=== PATIENT | male | born 1995 | race African-American/Black ===

== ENCOUNTER 2022-03-18 16:58 | Emergency (ER) | payer SELFPAY ==
[~2022-03-18] VITALS: Ht 190.5 cm; Wt 119.8 kg
[2022-03-18] MEDS ORDERED: NORVASC5 MG PO (17:43)
[2022-03-18] MEDS ORDERED: HYDROCHLOROTH12.5 MG PO (17:44)
[2022-03-18] MEDS ORDERED: METOPROLOL TAR100 MG PO (17:44)
[2022-03-18] MEDS ORDERED: LISINOPRIL40 MG PO (17:44)
--- OUTSIDE RECORDS SUMMARY | 2022-03-18 18:16 | XMS ---
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 Geremias has no Care Guidelines for this patient. Quintin VISIT COUNT (12 MO.) [address] [facility] [facility] TOTAL 4 NOTE: Visits indicate total known visits. ED/UCC VISIT TRACKING (12 MO.) 03/18/2022 16:59 [facility] [place] TYPE: Emergency COMPLAINT: - ABDOMINAL PAIN 02/05/2022 16:10 [facility] [place] TYPE: Emergency COMPLAINT: - POSS HYPERTENSION - Headache, unspecified DIAGNOSES: 1. Headache, unspecified 2. Essential (primary) hypertension 3. Hypokalemia 4. Encounter for issue of repeat prescription 01/20/2022 18:50 [facility] [place] TYPE: Emergency COMPLAINT: - WEAKNESS, NAUSEA, BRANDT - Chest pain, unspecified - Weakness - Headache, unspecified DIAGNOSES: 1. Chest pain, unspecified 2. Contact with and (suspected) exposure to COVID-19 01/20/2022 16:22 [facility] [place] TYPE: Emergency COMPLAINT: - HEADACHE, CHEST PAIN, OUT OF BP MEDS 2 DAYS, HAND TINGLING DIAGNOSES: - HEADACHE, CHEST PAIN, OUT OF BP MEDS 2 DAYS, HAND TINGLING INPATIENT VISIT TRACKING (12 MO.) No inpatient visits to display in this time frame [email or web address]
== END 2022-03-18 21:40 | disposition home or self-care (01) ==
LOC: ED 16:58
DX: R10.31 Right lower quadrant pain (principal); I10 Essential (primary) hypertension; Z79.899 Other long term (current) drug therapy; Z88.8 Allergy status to other drugs, medicaments and biological substances
CPT/HCPCS: 36415; 74177; 80053; 81003; 83690; 85025; 99284-25; J2405; J7030; Q9967